=== PATIENT | female | born 1935 | race Caucasian/White ===

== ENCOUNTER → 2016-02-24 | Outpatient (CLI) | payer OTHER ==
[~2016-02-24] MED LIST: CALCIUM 500 +1 EAC5 PO; CELECOXIB100 MG PO; CENTRUM SILVER1 EAC4 PO; COLACE100 MG PO; LISINOPRIL20 MG PO; NORCO 5-325 TA1 EACH PO
== END ==
LOC: CAT 10:30
DX: M25.511 Pain in right shoulder (principal); M12.811 Other specific arthropathies, not elsewhere classified, right shoulder; M75.101 Unspecified rotator cuff tear or rupture of right shoulder, not specified as traumatic